=== PATIENT | male | born 1955 | race Caucasian/White ===

== ENCOUNTER 2021-01-23 06:48 | Day surgery (SDC) | payer MEDICARE ==
[~2021-01-23 06:48] MED LIST: Lactated Ringers 1,000 ML IV SCH; Sodium Chloride 0.9% 10 ML Syringe FLUSH PRN
[2021-01-23] MEDS ORDERED: Propofol 200 MG/20 ML SDV IV ONE (06:49)
--- NOTE | 2021-01-23 08:57 | PCM.OPNOTE ---
- General Post-Op/Procedure Note Date of Surgery/Procedure: 01/23/21 Operative Procedure(s): Colonoscopy with polypectomy Findings: Small sigmoid colon polyp Colon otherwise normal Pre Op Diagnosis: History of colon polyps Post-Op Diagnosis: Colon Polyps Anesthesia Technique: MAC Primary Surgeon: Gary Kowalski Pathology: Sigmoid Colon Polyp EBL in mLs: 0 Complications: None Condition: Good
--- NOTE | 2021-01-23 11:53 | PREOP ---
ADMISSION DATE: 01/23/2021 HISTORY OF PRESENT ILLNESS: This 65-year-old male is seen today for colonoscopy. His last colon exam was 7 years ago. He does have a known history of colon polyps. He has also noticed a recent change in bowel pattern with some abdominal bloating, intermittent diarrhea, and constipation. PAST MEDICAL HISTORY: Indicates that he does have a history of rheumatic fever as a child. CURRENT MEDICATIONS: Strattera and Xalatan. ALLERGIES: He has no known drug allergies. FAMILY HISTORY: There is no history of anesthetic complications. SOCIAL HISTORY: The patient is not and lives in [place], [place]. REVIEW OF SYSTEMS: Not had any recent symptoms of chest pain or palpitations. No cough or shortness of breath. PHYSICAL EXAMINATION: VITAL SIGNS: Weight is 200 pounds, temperature 98.3, pulse 52, blood pressure is 173/81. GENERAL: The patient is an alert adult male, he is in no acute distress. HEENT: Head is normocephalic. No scleral icterus. HEART: Regular without murmur. LUNGS: Clear. Breath sounds are equal. No wheezing is noted. ABDOMEN: Soft and nontender. EXTREMITIES: Show no obvious deformity. IMPRESSION: History of colon polyps and change in bowel pattern. PLAN: Colonoscopy. INFORMED CONSENT: I have discussed the proposed colonoscopy with the patient, reviewed with him indications, options, and risks such as, but not limited to, bleeding and GI injury. He agrees to proceed. /[id number] MECHELLE/MAHENDRA
--- NOTE | 2021-01-23 14:09 | OR ---
DATE OF OPERATION: 01/23/2021 SURGEON: Gary Kowalski MD PREOPERATIVE DIAGNOSIS: History of colon polyps, change in bowel pattern. POSTOPERATIVE DIAGNOSIS: Colon polyp. OPERATION PERFORMED: Colonoscopy with polypectomy. INDICATIONS FOR SURGERY: This 65-year-old male has a known history of colon polyps and it has been several years since his last colon exam. He has also noticed a recent change in bowel pattern. FINDINGS: In the sigmoid colon approximately 15 cm from the anal verge, the patient has a cluster of 3 polyps. Two of these are very small estimated at 2 to 3 mm in size. These were destroyed with cautery. The other polyp is a 6-mm sessile polyp. This was removed and retrieved for pathology. The remainder of the colon, rectum, and terminal ileum appeared normal. PROCEDURE IN DETAIL: The patient was taken to the procedure room. He was given intravenous sedation, and with him in the left lateral decubitus position, digital rectal exam was performed showing no rectal masses. The Olympus colonoscope was inserted into the rectum, retroflexed examination of the rectal canal was performed. The scope was then carefully advanced into the sigmoid region where the above-described polyps were identified. The small polyps were destroyed with cautery. The larger polyp was removed with a cautery snare and retrieved into a polyp trap. The scope was then carefully advanced throughout the entire length of the colon until the cecum was reached. Cecal acquisition was confirmed by noting the normal internal cecal anatomy including the appendiceal orifice and the ileocecal valve. The ileocecal valve was cannulated and the terminal ileum examined and appeared normal. The scope was then slowly withdrawn, sequentially re-examining the colonic segments until the entire colon and rectum had been fully examined. The scope was removed and the patient was taken from the procedure room in satisfactory condition. ESTIMATED BLOOD LOSS: 0. COMPLICATIONS: None. PROGNOSIS: Good. /[id number] MECHELLE/MAHENDRA
== END 2021-01-23 09:33 | disposition home or self-care (01) ==
LOC: FB.SDS 06:48
PROVIDERS: ATTEND Surgery
DX: K63.5 Polyp of colon (principal); Z79.899 Other long term (current) drug therapy
CPT/HCPCS: 00812-QZ; 88305; J2704; J7120